=== PATIENT | female | born 1950 | race Caucasian/White ===

== ENCOUNTER 2016-07-23 19:25 | Emergency (ER) | payer OTHER ==
[2016-07-23] MEDS ORDERED: ASPIRIN 81 MG CHEW TAB ONE (20:14)
== END 2016-07-23 23:44 | disposition home or self-care (01) ==
LOC: ER 19:25
DX: M19.011 Primary osteoarthritis, right shoulder (principal); R07.2 Precordial pain; R07.89 Other chest pain; E78.00 Pure hypercholesterolemia, unspecified; Z85.820 Personal history of malignant melanoma of skin; Z79.82 Long term (current) use of aspirin; Z79.899 Other long term (current) drug therapy
CPT/HCPCS: 36415; 71010; 80053; 82550; 83735; 84484; 85025; 85610; 85730; 93005